=== PATIENT | male | born 1955 | race Caucasian/White ===

== ENCOUNTER 2018-03-08 14:01 | Inpatient (IN) | payer OTHER ==
[~2018-03-08] VITALS: Ht 188 cm; Wt 100.2 kg
--- NOTE | ~2018-03-08 | HP ---
PATIENT: GERARDO BREWER MEDICAL RECORD: [id number] ACCOUNT: [id number] LOCATION:[facility] : 51 ADMISSION DATE: 03/08/18 PCP: JILLIAN LEON MD HISTORY AND PHYSICAL EXAMINATION DATE OF ADMISSION: 03/08/2018 CHIEF COMPLAINT: Sore on toe. HISTORY: This is a 62-year-old white male who is followed by Dr. Leon, but unfortunately he chooses not to come in very often. He was last seen by Dr. Leon on 04/24/2016. He is a diabetic. He comes in with an infected toe/foot. 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 He states he had to wear steel toed boots starting about a month ago. He developed a blister on the medial aspect of the left great toe and he had been taking care of it himself. He states that the toe looked great until yesterday when he took his boot off and he had increased redness and swelling. He had an open wound. He states this really just started in the last day or two. He has had increased pain in the foot with weightbearing. Examination of the foot in my office showed diabetic ulcer, more on the bottom of his foot. He has an open wound with eschar on top of the foot, is swollen and red. There are no erythematous streaks going up the leg at this point. He is admitted for diabetic foot with significant cellulitis and diabetic ulcer. PAST MEDICAL AND SURGICAL HISTORY: He has type 2 diabetes. His last A1c was 8.2 and this was in April of 2016. He has not been back in the office since. He has had positive H. pylori in the past. He has hypertension and metabolic syndrome. DRUG ALLERGIES: None known. SURGICAL HISTORY: No known surgeries. HOME MEDICATIONS: Clonidine 0.2 mg twice a day, Diovan HCT 160/25 once a day, metoprolol succinate 50 once a day, glipizide 2.5/metformin 250 mg once a day, multivitamin once a day, MiraLAX one scoop daily, fish oil 1000 mg daily, cinnamon 500 mg daily, and aspirin 81 mg daily. SOCIAL HISTORY: He is . 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 FAMILY HISTORY: His father is . He had diabetes and emphysema. His mother is alive with diabetes and history of ovarian cancer. REVIEW OF SYSTEMS: GENERAL: No major weight changes. HEENT: No particular sinus or allergy problems. RESPIRATORY: No history of emphysema or asthma. CARDIAC: No chest pain or palpitations. GASTROINTESTINAL: He has occasional heartburn. GENITOURINARY: He has had BPH. MUSCULOSKELETAL: No significant joint aches and pains. NEUROLOGIC: He has no migraines or seizures. He does have diabetic peripheral neuropathy. PSYCHIATRIC: No melancholy or depression. HISTORY AND PHYSICAL [id number] GERARDO BREWER PHYSICAL EXAMINATION: VITAL SIGNS: Temperature 97.9, pulse 73, respirations 18, blood pressure 150/83, and O2 sat 99%. GENERAL: He is awake and alert. He does not appear to be in acute distress. HEENT: Unremarkable. NECK: Supple. HEART: Regular rate and rhythm without murmur. LUNGS: Clear. ABDOMEN: Soft. EXTREMITIES: All is okay except the right foot, particularly the great toe, which has swelling. He has a dry ulceration on the sole of the foot and on the top, just lateral to the nail bed. There is an open wound of about 1.5 cm in size. There is no drainage from this. It has an eschar on top. The entire toe is swollen and erythematous. Erythema is also on the dorsum of the foot. Dorsalis pedis pulses 2+. He is able to move all toes without problem. LABORATORY DATA: CBC with white count of 15,400. Hemoglobin is normal. Basic metabolic panel is normal except glucose is high at 208. Hemoglobin A1c is 9.2. Liver functions are all normal. ASSESSMENT: This is a gentleman with uncontrolled diabetes with a foot ulcer and cellulitis of the left great toe. He is admitted now for IV antibiotics. We will get a CT to rule out osteomyelitis. General surgery has been consulted for possible I&D. We will monitor his glucose. Other tests or procedures as warranted. TRANSINT:[id number] Voice Confirmation ID: [id number] DOCUMENT ID: [id number] MAX REED MD at 1908 CC: [id number] DICTATION DATE: 03/08/18 170 CHANNEL MARKETING PROGRAM MANAGER: 03/08/18 1750 ADM IN [place] [id number] [place] [address]
--- NOTE | ~2018-03-08 | MORECARE ---
CASE MANAGEMENT DISCHARGE SUMMARY PATIENT: GERARDO BREWER UNIT: [id number] ADM DATE: 03/08/18 AGE: 62 : 53 SEX: M ROOM/BED: D.2207 AUTHOR: FEDERICA SAEZ PHYSICIAN: REFERRING PHYSICIAN: JILLIAN BOWMAN MD DATE OF SERVICE: 03/11/18 Discharge Plan Patient Name: GERARDO BREWER Facility: [facility]:[place] : 1955 Planned Disposition: Home Anticipated Discharge Date: Discharge Date: Expected LOS: Initial Reviewer: [email or web address] Initial Review Date: 03/08/2018 Generated: 03/11/18 10:39 am Comments DCP- Discharge Planning Updated by [email or web address]: Rocio Saenz on 03/11/18 8:[address] Patient Name: GERARDO BREWER Encounter No: [id number] : 1955 Primary Insurance: [facility] Anticipated DC Date: Planned Disposition: Home External Planned Provider: : DCP follow-up note: Patient and family in agreement with discharge plan. No changes to plan. Case management will follow and assist as needed. Rocio Saenz DCP- Discharge Planning Updated by [email or web address]: Rocio Saenz on 03/10/18 12:[address] Patient Name: GERARDO BREWER Admission Status: Urgent Accout number: [id number] Admission Date: 03-08-2018 : 1955 Admission Diagnosis: Attending: JILLIAN BOWMAN Current LOS: 2 Anticipated DC Date: Planned Disposition: Home Primary Insurance: [facility] Discharge Planning Comments: CM met with patient to assess discharge planning needs. Patient stated that he lives independent with his and plans to return there at discharge. He has a cane that he uses at times. There are 3 steps to enter in his home. He does need a glucometer and I told him about the 4$ glucometer at [facility]. 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 He does not use HH and did not think he will need any either. CM will continue to follow and assist with DC planning Communications Scientist: Rocio Saenz DCPIA - Discharge Planning Initial Assessment Updated by [email or web address]: Rocio Saenz on 03/10/18 1:51 pm * Is the patient Alert and Oriented? Yes * How many steps to enter\exit or inside your home? * PCP ukrainian * Pharmacy [facility] * Preadmission Environment Home with Family * ADLs Independent * Equipment Cane * List name and contact numbers for known caregivers / representatives who currently or will assist patient after discharge: mario () [phone] * Verbal permission to speak to the caregivers and representatives has been obtained from the patient. N/A * Community resources currently utilized None * Additional services required to return to the preadmission environment? No * Can the patient safely return to the preadmission environment? Yes * Has this patient been hospitalized within the prior 30 days at any hospital? No Last DP export: 03/10/18 12:54 Patient Name: GERARDO BREWER Page [id number] at 0939 All edits/amendments must be made on the electronic document DICTATION DATE: 03/11/18937 IT ENGINEER: CONCHITA 03/11/18937 RPT#: [id number] DC DATE: STATUS: ADM IN [facility] [address] [place] [address] END OF REPORT
--- NOTE | ~2018-03-08 | MORECARE ---
CASE MANAGEMENT DISCHARGE SUMMARY PATIENT: GERARDO BREWER UNIT: [id number] ADM DATE: 03/08/18 AGE: 62 : 53 SEX: M ROOM/BED: D.2207 AUTHOR: [email or web address] PHYSICIAN: REFERRING PHYSICIAN: JILLIAN BOWMAN MD DATE OF SERVICE: 03/10/18 Discharge Plan Patient Name: GERARDO BREWER Facility: [facility]:[place] : 1955 Planned Disposition: Home Anticipated Discharge Date: Discharge Date: Expected LOS: Initial Reviewer: [email or web address] Initial Review Date: 03/08/2018 Generated: 03/10/18 2:54 pm Comments DCP- Discharge Planning Updated by [email or web address]: Rocio Saenz on 03/10/18 12:[address] Patient Name: GERARDO BREWER Admission Status: Urgent Accout number: [id number] Admission Date: 03-08-2018 : 1955 Admission Diagnosis: Attending: JILLIAN BOWMAN Current LOS: 2 Anticipated DC Date: Planned Disposition: Home Primary Insurance: [facility] Discharge Planning Comments: CM met with patient to assess discharge planning needs. Patient stated that he lives independent with his and plans to return there at discharge. He has a cane that he uses at times. There are 3 steps to enter in his home. He does need a glucometer and I told him about the 4$ glucometer at [facility]. His will be his truck driver heavy home. He does not use HH and did not think he will need any either. CM will continue to follow and assist with DC planning Machine Sole Leveler: Rocio Saenz DCPIA - Discharge Planning Initial Assessment Updated by [email or web address]: Rocio Saenz on 03/10/18 1:51 pm * Is the patient Alert and Oriented? Yes * How many steps to enter\exit or inside your home? * PCP lebanese * Pharmacy [facility] * Preadmission Environment Home with Family * ADLs Independent * Equipment Cane * List name and contact numbers for known caregivers / representatives who currently or will assist patient after discharge: mario () [phone] * Verbal permission to speak to the caregivers and representatives has been obtained from the patient. N/A * Community resources currently utilized None * Additional services required to return to the preadmission environment? No * Can the patient safely return to the preadmission environment? Yes * Has this patient been hospitalized within the prior 30 days at any hospital? No Patient Name: GERARDO BREWER Page [id number] at 1354 All edits/amendments must be made on the electronic document DICTATION DATE: 03/10/18 1353 SENIOR SALES OPERATIONS MANAGER: CONCHITA 03/10/18 1353 RPT#: [id number] DC DATE: STATUS: ADM IN [facility] [address] [place] [address] END OF REPORT
--- NOTE | ~2018-03-08 | MORECARE ---
CASE MANAGEMENT DISCHARGE SUMMARY PATIENT: GERARDO BREWER UNIT: [id number] ADM DATE: 03/08/18 AGE: 62 : 53 SEX: M ROOM/BED: D.2207 AUTHOR: FEDERICA SAEZ PHYSICIAN: REFERRING PHYSICIAN: JILLIAN BOWMAN MD DATE OF SERVICE: 03/11/18 Discharge Plan Patient Name: GERARDO BREWER Facility: [facility]:[place] : 1955 Planned Disposition: Home Anticipated Discharge Date: Discharge Date: 03/11/2018 Expected LOS: Initial Reviewer: [email or web address] Initial Review Date: 03/08/2018 Generated: 03/11/18 4:08 pm Comments DCP- Discharge Planning Updated by [email or web address]: Rocio Saenz on 03/11/18 8:[address] Patient Name: GERARDO BREWER Encounter No: [id number] : 1955 Primary Insurance: [facility] Anticipated DC Date: Planned Disposition: Home External Planned Provider: : DCP follow-up note: Patient and family in agreement with discharge plan. No changes to plan. Case management will follow and assist as needed. Rocio Saenz DCP- Discharge Planning Updated by [email or web address]: Rocio Saenz on 03/10/18 12:[address] Patient Name: GERARDO BREWER Admission Status: Urgent Accout number: [id number] Admission Date: 03-08-2018 : 1955 Admission Diagnosis: Attending: JILLIAN BOWMAN Current LOS: 2 Anticipated DC Date: Planned Disposition: Home Primary Insurance: [facility] Discharge Planning Comments: CM met with patient to assess discharge planning needs. Patient stated that he lives independent with his and plans to return there at discharge. He has a cane that he uses at times. There are 3 steps to enter in his home. He does need a glucometer and I told him about the 4$ glucometer at [facility]. His will be his driver merchandiser home. He does not use HH and did not think he will need any either. CM will continue to follow and assist with DC planning Nurse Anesthetist: Rocio Saenz DCPIA - Discharge Planning Initial Assessment Updated by [email or web address]: Rocio Saenz on 03/10/18 1:51 pm * Is the patient Alert and Oriented? Yes * How many steps to enter\exit or inside your home? * PCP czech * Pharmacy [facility] * Preadmission Environment Home with Family * ADLs Independent * Equipment Cane * List name and contact numbers for known caregivers / representatives who currently or will assist patient after discharge: mario () [phone] * Verbal permission to speak to the caregivers and representatives has been obtained from the patient. N/A * Community resources currently utilized None * Additional services required to return to the preadmission environment? No * Can the patient safely return to the preadmission environment? Yes * Has this patient been hospitalized within the prior 30 days at any hospital? No Last DP export: 03/11/18 8:39 Patient Name: GERARDO BREWER Page 56508 at 1508 All edits/amendments must be made on the electronic document DICTATION DATE: 03/11/188 MAINTENANCE TECHNICIAN 3RD SHIFT: CONCHITA 03/11/18 1508 RPT#: [id number] DC DATE:03/11/18 STATUS: DIS IN [facility] [address] [place] [address] END OF REPORT
[2018-03-08 14:39] VITALS: BP 150/83; BMI 28.4
[2018-03-08 16:05] LABS: BASOPHILS 0.2 % (0-2); EOSINOPHILS 0.7 % (0-7); HEMATOCRIT 43.4 % (42.0-54.0); HEMOGLOBIN 15.4 g/dL (13.5-17.5); IMMATURE GRANULOCYTES 0.3 % (0-5); LYMPHOCYTES 12.3 % (15-50); MCH 31.8 pg (26.0-34.0); MCHC 35.5 g/dL (31.0-37.0); MCV 89.5 fL (80.0-100.0); MEAN PLATELET VOLUME 12.2 fL (7.4-10.4); MONOCYTES 10.3 % (2-11); NEUTROPHILS 76.2 % (40-80); PLATELET COUNT 152 10x3/uL (130-400); RBC 4.85 10x6/uL (4.20-6.10); RDW 12.1 % (11.5-14.5); WBC 15.4 10x3/uL (4.8-10.8)
[2018-03-08 16:19] LABS: ALKALINE PHOSPHATASE 85 U/L (46-116); ALT (SGPT) 21 U/L (10-68); BILIRUBIN - TOTAL 1.15 mg/dL (0.2-1.3); CALC OSMOLALITY 281 mosm/kg (275-300); CALCIUM 9.7 mg/dL (8.5-10.1); CARBON DIOXIDE 32.4 mmol/L (21.0-32.0); CHLORIDE - SERUM 99 mmol/L (98-107); GLUCOSE 208 mg/dL (74-106); POTASSIUM - SERUM 4.2 mmol/L (3.5-5.1); PROTEIN - SERUM 7.7 g/dL (6.4-8.2); SODIUM 137 mmol/L (136-145); UREA NITROGEN 18 mg/dL (7-18); eGFR NON AFRICAN AMERICAN 80 mL/min (90-120)
[2018-03-08 17:52] VITALS: BP 158/71
[2018-03-08 20:00] VITALS: BP 139/61
[2018-03-09 04:00] VITALS: BP 101/65
[2018-03-09 04:13] LABS: BASOPHILS 0.5 % (0-2); EOSINOPHILS 2.7 % (0-7); HEMATOCRIT 39.7 % (42.0-54.0); HEMOGLOBIN 13.6 g/dL (13.5-17.5); IMMATURE GRANULOCYTES 0.2 % (0-5); LYMPHOCYTES 23.9 % (15-50); MCH 30.6 pg (26.0-34.0); MCHC 34.3 g/dL (31.0-37.0); MCV 89.2 fL (80.0-100.0); MEAN PLATELET VOLUME 12.1 fL (7.4-10.4); MONOCYTES 11.5 % (2-11); NEUTROPHILS 61.2 % (40-80); PLATELET COUNT 163 10x3/uL (130-400); RBC 4.45 10x6/uL (4.20-6.10)
[2018-03-09 04:20] LABS: WBC 8.2 10x3/uL (4.8-10.8)
[2018-03-09 04:27] LABS: CALC OSMOLALITY 288 mosm/kg (275-300); CARBON DIOXIDE 30.4 mmol/L (21.0-32.0); CHLORIDE - SERUM 103 mmol/L (98-107); CREATININE - SERUM 0.9 mg/dL (0.6-1.3); POTASSIUM - SERUM 3.8 mmol/L (3.5-5.1); SODIUM 138 mmol/L (136-145); UREA NITROGEN 17 mg/dL (7-18); eGFR NON AFRICAN AMERICAN 90 mL/min (90-120)
[2018-03-09 04:29] LABS: GLUCOSE 305 mg/dL (74-106)
[2018-03-09 08:30] VITALS: BP 148/73
[2018-03-09 08:53] VITALS: BP 147/97
[2018-03-09 13:26] VITALS: BP 132/72
[2018-03-09 13:50] VITALS: Ht 188 cm; Wt 100.2 kg
[2018-03-09 16:08] VITALS: BP 120/58
[2018-03-10 01:37] VITALS: BP 138/65
[2018-03-10 04:56] LABS: BASOPHILS 0.6 % (0-2); EOSINOPHILS 5.2 % (0-7); HEMATOCRIT 38.9 % (42.0-54.0); HEMOGLOBIN 13.3 g/dL (13.5-17.5); IMMATURE GRANULOCYTES 0.2 % (0-5); LYMPHOCYTES 34.7 % (15-50); MCH 30.6 pg (26.0-34.0); MCHC 34.2 g/dL (31.0-37.0); MCV 89.4 fL (80.0-100.0); MEAN PLATELET VOLUME 12.6 fL (7.4-10.4); MONOCYTES 10.5 % (2-11); NEUTROPHILS 48.8 % (40-80); PLATELET COUNT 172 10x3/uL (130-400); RBC 4.35 10x6/uL (4.20-6.10); WBC 6.6 10x3/uL (4.8-10.8)
[2018-03-10 05:23] LABS: CALC OSMOLALITY 284 mosm/kg (275-300); CALCIUM 8.7 mg/dL (8.5-10.1); CARBON DIOXIDE 30.9 mmol/L (21.0-32.0); CHLORIDE - SERUM 105 mmol/L (98-107); POTASSIUM - SERUM 3.7 mmol/L (3.5-5.1); SODIUM 139 mmol/L (136-145); UREA NITROGEN 20 mg/dL (7-18); VANCOMYCIN - TROUGH 10.7 ug/mL (10.0-20.0); eGFR NON AFRICAN AMERICAN 80 mL/min (90-120)
[2018-03-10 05:36] LABS: GLUCOSE 172 mg/dL (74-106)
[2018-03-10 06:06] VITALS: BP 124/54
[2018-03-10 09:14] VITALS: BP 113/59
[2018-03-10 12:41] VITALS: BP 141/60
[2018-03-10 16:48] VITALS: BP 130/67
[2018-03-10 20:00] VITALS: BP 129/59
[2018-03-11] VITALS: BP 118/61
[2018-03-11 03:52] LABS: BASOPHILS 0.5 % (0-2); HEMATOCRIT 38.4 % (42.0-54.0); HEMOGLOBIN 13.2 g/dL (13.5-17.5); IMMATURE GRANULOCYTES 0.2 % (0-5); LYMPHOCYTES 36.7 % (15-50); MCH 30.5 pg (26.0-34.0); MCHC 34.4 g/dL (31.0-37.0); MCV 88.7 fL (80.0-100.0); MEAN PLATELET VOLUME 11.5 fL (7.4-10.4); MONOCYTES 8.8 % (2-11); NEUTROPHILS 48.8 % (40-80); PLATELET COUNT 182 10x3/uL (130-400); RBC 4.33 10x6/uL (4.20-6.10); RDW 11.8 % (11.5-14.5)
[2018-03-11 04:00] VITALS: BP 134/58
[2018-03-11 04:06] LABS: ANION GAP 9.5 mmol/L (8-16); CALCIUM 8.5 mg/dL (8.5-10.1); CARBON DIOXIDE 29.8 mmol/L (21.0-32.0); CREATININE - SERUM 1.1 mg/dL (0.6-1.3)
[2018-03-11 04:10] LABS: POTASSIUM - SERUM 4.3 mmol/L (3.5-5.1)
[2018-03-11] MEDS ORDERED: VALSART/HCTZ TAB 160 PO (05:22)
[2018-03-11] MEDS ORDERED: METOPROLOL SUCCINATE PO (05:22)
[2018-03-11] MEDS ORDERED: GLIP PO (05:23)
[2018-03-11] MEDS ORDERED: CLONIDINE HCL 0.2 MG PO (05:23)
[2018-03-11] MEDS ORDERED: METFORM PO (05:23)
[2018-03-11] MEDS ORDERED: METFORMIN HCL500 M1 PO (07:09)
[2018-03-11] MEDS ORDERED: CATAPRES0.2 MG PO (07:09)
[2018-03-11] MEDS ORDERED: TOPROL XL50 MG PO (07:09)
[2018-03-11] MEDS ORDERED: GLUCOTROL 5 MG T5 MG PO (07:09)
[2018-03-11] MEDS ORDERED: AUGMENTIN 875-11 TAB PO (07:10)
[2018-03-11] MEDS ORDERED: BACTROBAN CREAM15 GM TOPICAL (07:12)
[2018-03-11 09:15] VITALS: BP 172/79
== END 2018-03-11 11:44 | disposition home or self-care (01) | DRG 638 ==
LOC: D.MS 14:01
PROVIDERS: Family Medicine
DX: E11.621 Type 2 diabetes mellitus with foot ulcer (principal); L03.116 Cellulitis of left lower limb; E11.628 Type 2 diabetes mellitus with other skin complications; E11.65 Type 2 diabetes mellitus with hyperglycemia; I10 Essential (primary) hypertension; E11.40 Type 2 diabetes mellitus with diabetic neuropathy, unspecified; L97.511 Non-pressure chronic ulcer of other part of right foot limited to breakdown of skin

== ENCOUNTER → 2019-09-08 13:59 | Outpatient (CLI) | payer OTHER ==
[2018-03-09 13:50] VITALS: BMI 28.3
[~2019-09-08 13:59] MED LIST: AUGMENTIN 875-11 TAB PO; BACTROBAN CREAM15 GM TOPICAL; CATAPRES0.2 MG PO; CLONIDINE HCL 0.2 MG PO; GLIP PO; GLUCOTROL 5 MG T5 MG PO; METFORM PO; METFORMIN HCL500 M1 PO; METOPROLOL SUCCINATE PO; TOPROL XL50 MG PO; VALSART/HCTZ TAB 160 PO
== END | disposition home or self-care (01) ==
LOC: D.MRI 13:59
PROVIDERS: ATTEND Family Medicine
DX: M21.371 Foot drop, right foot (principal); M54.41 Lumbago with sciatica, right side; I73.9 Peripheral vascular disease, unspecified